=== PATIENT | male | born 1975 | race Hispanic/Latino ===

== ENCOUNTER → 2018-12-15 | Outpatient (CLI) | payer OTHER | END | disposition home or self-care (01) | LOC: RAH 12:52 | PROVIDERS: ATTEND Internal Medicine Cardiovascular Disease | DX: Z13.6 Encounter for screening for cardiovascular disorders (principal) | CPT/HCPCS: 75571 ==

== ENCOUNTER → 2021-03-04 | Outpatient (CLI) | payer BC | END | disposition home or self-care (01) | LOC: DTH 14:27 | PROVIDERS: ATTEND Surgery | DX: G47.33 Obstructive sleep apnea (adult) (pediatric) (principal); E66.01 Morbid (severe) obesity due to excess calories; I10 Essential (primary) hypertension; K21.9 Gastro-esophageal reflux disease without esophagitis | CPT/HCPCS: 97802 ==

== ENCOUNTER 2021-04-09 10:00 | Inpatient (IN) | payer SELFPAY ==
[~2021-04-09] VITALS: Ht 172.7 cm; Wt 148.3 kg
[2021-04-09 09:02] LABS: BASOPHILS % (AUTO) 0.6 % (0.0-5.0); EOSINOPHILS % (AUTO) 1.6 % (0.0-8.0); HEMATOCRIT 51.2 % (42-54); LYMPHOCYTES % (AUTO) 19.3 % (21.0-51.0); MEAN CORPUSCULAR HEMOGLOBIN 30.2 pg (27.0-33.0); MEAN CORPUSCULAR HGB CONC 33.8 g/dL (32.0-36.0); MEAN CORPUSCULAR VOLUME 89.4 fL (79-99); MONOCYTES % (AUTO) 7.3 % (3.0-13.0); NEUTROPHILS % (AUTO) 70.9 % (40.0-77.0); PLATELET COUNT (AUTO) 247 K/uL (130-400); RED BLOOD CELL COUNT(AUTO) 5.73 MIL/uL (4.50-6.20); RED CELL DISTRIBUTION WIDTH 13.2 % (11.0-15.5); WHITE BLOOD COUNT (AUTO) 10.2 K/uL (4.8-10.8)
[2021-04-09 09:11] LABS: INR 1.03 (0.85-1.15); PROTHROMBIN TIME 11.2 SEC (9.6-11.6)
[2021-04-09 09:12] LABS: CREATININE 1.1 mg/dL (0.5-1.5); PARTIAL THROMBOPLASTIN TIME 27.7 SEC (26.3-35.5); POTASSIUM 3.7 mmol/L (3.5-5.1)
[2021-04-11] MEDS: CEFAZOLIN SODIUM 1 GM VIAL IVP SCH (12:30)
[2021-04-12] MEDS ORDERED: ALBU8.5H8 IH (09:44)
[2021-04-12] MEDS ORDERED: ZOLP10TA2 PO (09:44)
[2021-04-12] MEDS ORDERED: OLME-11 PO (09:44)
[2021-04-15] VITALS (19 sets, daily range): BP systolic 97–140; BP diastolic 48–81
[2021-04-15] MEDS: CEFAZOLIN SODIUM 1 GM VIAL IVP SCH ×3 (08:19→13:31)
[2021-04-15] MEDS ORDERED: ALBUTEROL INHALER 90MCG/INH IH ONE ×2 (08:52→08:53)
[2021-04-15] MEDS ORDERED: PROPOFOL 10 MG/ML 20ML VIAL IV ONE ×2 (09:20→11:17)
[2021-04-15] MEDS ORDERED: SUCCINYLCHOLINE CHLORIDE 20 MG/ML 10 ML VIAL ONE (09:20)
[2021-04-15] MEDS ORDERED: LIDOCAINE PF 100MG/5ML (2%) SYRINGE 5ML ONE (09:20)
[2021-04-15] MEDS ORDERED: MIDAZOLAM HCL 1 MG/ML 2ML VIAL ONE (09:21)
[2021-04-15] MEDS ORDERED: ROCURONIUM 10MG/1ML SYR 10 MG/ML ML ONE ×2 (09:21→10:08)
[2021-04-15] MEDS ORDERED: BUPIVACAINE/PF 0.5% 10ML VIAL ONE (09:36)
[2021-04-15] MEDS ORDERED: PHENYLEPHRINE HCL 10 MG/ML 1ML VIAL IV ONE (09:37)
[2021-04-15] MEDS ORDERED: EPHEDRINE SULFATE 50 MG/ML AMPULE ONE (10:10)
[2021-04-15] MEDS ORDERED: LACTATED RINGERS 1000ML 1,000 ML IV ONE (10:36)
[2021-04-15] MEDS ORDERED: DEXAMETHASONE SOD PHOSPHATE 10MG/ML 1ML VIAL ONE (10:43)
[2021-04-15] MEDS ORDERED: FENTANYL CITRATE PF 50 MCG/1 ML 2ML VIAL ONE ×2 (10:54→11:51)
[2021-04-15] MEDS ORDERED: MEPERIDINE-PF 25 MG/ML SYG ONE ×4 (10:54→12:27)
[2021-04-15] MEDS ORDERED: NEOSTIGMINE 5MG/5ML SYR IV ONE (10:56)
[2021-04-15] MEDS ORDERED: GLYCOPYRROLATE 1 MG/5 ML SYRINGE ONE (10:56)
[2021-04-15] MEDS ORDERED: ONDANSETRON HCL 4 MG/2 ML VIAL IVP PRN (11:45)
[2021-04-15] MEDS ORDERED: MORPHINE 5 MG/ML VIAL (5MG OR GREATER DOSE) IVP PRN (11:45)
[2021-04-15] MEDS ORDERED: CEFAZOLIN 3GM /D5W 100ML 100 ML IV SCH (11:45)
[2021-04-15] MEDS ORDERED: SCOPOLAMINE HYDROBROMIDE 1 EACH ADH..PATCH TD ONE (12:26)
[2021-04-15] MEDS: LACTATED RINGERS 1000ML 1,000 ML IV SCH (13:31)
[2021-04-15] MEDS: KETOROLAC 30MG VIAL (30MG/ML) IM PRN (14:12)
[2021-04-15] MEDS ORDERED: ALBUTEROL INHALER 90MCG/INH IH PRN (14:15)
[2021-04-15] MEDS ORDERED: ENOXAPARIN SODIUM 30 MG/0.3 ML SQ ONE (19:19)
[2021-04-15] MEDS ORDERED: FAMOTIDINE/PF 20 MG/2 ML VIAL IV ONE (19:20)
[2021-04-15] MEDS: FAMOTIDINE/PF 20 MG/2 ML VIAL IV SCH (19:23)
[2021-04-15] MEDS: ENOXAPARIN SODIUM 30 MG/0.3 ML SQ SCH (19:23)
[2021-04-15] MEDS: CEFAZOLIN 3GM /D5W 100ML 100 ML IV SCH (19:23)
[2021-04-15] MEDS: MORPHINE 4 MG SYG (4MG/1ML) IV PRN (19:42)
[2021-04-15] MEDS ORDERED: NON-FORMULARY MEDICATION 1 EACH (Zolpidem Tartrate (Ambien) 10 MG) PO SCH (21:00)
[2021-04-15] MEDS: ZOLPIDEM TARTRATE 5 MG TAB PO SCH (21:00)
[2021-04-15] MEDS: OLMESARTAN HCTZ PO SCH (21:00)
[2021-04-16] VITALS (7 sets, daily range): BP systolic 104–142; BP diastolic 54–94
[2021-04-16] MEDS: MORPHINE 4 MG SYG (4MG/1ML) IV PRN ×3 (02:16→13:33)
[2021-04-16] MEDS: CEFAZOLIN 3GM /D5W 100ML 100 ML IV SCH (03:10)
[2021-04-16 04:44] LABS: BASOPHILS % (AUTO) 0.1 % (0.0-5.0); EOSINOPHILS % (AUTO) 0.1 % (0.0-8.0); MEAN CORPUSCULAR HEMOGLOBIN 30.2 pg (27.0-33.0); MEAN CORPUSCULAR HGB CONC 33.9 g/dL (32.0-36.0); MEAN CORPUSCULAR VOLUME 89.2 fL (79-99); MONOCYTES % (AUTO) 8.1 % (3.0-13.0); NEUTROPHILS % (AUTO) 84.2 % (40.0-77.0); PLATELET COUNT (AUTO) 208 K/uL (130-400); RED BLOOD CELL COUNT(AUTO) 4.93 MIL/uL (4.50-6.20); RED CELL DISTRIBUTION WIDTH 13.2 % (11.0-15.5); WHITE BLOOD COUNT (AUTO) 13.9 K/uL (4.8-10.8)
[2021-04-16 04:51] LABS: CREATININE 1.2 mg/dL (0.5-1.5); POTASSIUM 4.6 mmol/L (3.5-5.1)
[2021-04-16] MEDS: LACTATED RINGERS 1000ML 1,000 ML IV SCH ×3 (06:28→19:45)
[2021-04-16] MEDS: KETOROLAC 30MG VIAL (30MG/ML) IM PRN ×2 (07:47→16:01)
[2021-04-16] MEDS: FAMOTIDINE/PF 20 MG/2 ML VIAL IV SCH ×2 (09:04→21:04)
[2021-04-16] MEDS: ENOXAPARIN SODIUM 30 MG/0.3 ML SQ SCH ×2 (09:04→21:04)
[2021-04-16] MEDS ORDERED: APAP/CODEINE 120/12MG 5ML PO PRN (17:45)
[2021-04-16] MEDS: OLMESARTAN HCTZ PO SCH (21:00)
[2021-04-16] MEDS: ZOLPIDEM TARTRATE 5 MG TAB PO SCH (21:00)
[2021-04-16] MEDS: KETOROLAC 30MG VIAL (30MG/ML) IV SCH (21:12)
[2021-04-17] MEDS: KETOROLAC 30MG VIAL (30MG/ML) IV SCH ×2 (03:21→08:16)
[2021-04-17] MEDS: LACTATED RINGERS 1000ML 1,000 ML IV SCH (03:45)
[2021-04-17 03:53] VITALS: BP 106/66
[2021-04-17 08:13] VITALS: BP 110/68
[2021-04-17] MEDS: FAMOTIDINE/PF 20 MG/2 ML VIAL IV SCH (08:16)
[2021-04-17] MEDS: ENOXAPARIN SODIUM 30 MG/0.3 ML SQ SCH (08:17)
== END 2021-04-17 12:00 | disposition home or self-care (01) | DRG 621 ==
LOC: EDSTATUS 10:00 → DAHIP 04-15 07:28 → 4BH 04-15 12:42
PROVIDERS: ADMIT Surgery; ATTEND Surgery
PROC: 0D164ZA Bypass Stomach to Jejunum, Percutaneous Endoscopic Approach (ICD-10-PCS; principal; 2021-04-15 09:18)
DX: E66.01 Morbid (severe) obesity due to excess calories (principal); Z96.652 Presence of left artificial knee joint; I10 Essential (primary) hypertension; Z83.3 Family history of diabetes mellitus; Z82.49 Family history of ischemic heart disease and other diseases of the circulatory system; K21.9 Gastro-esophageal reflux disease without esophagitis; Z68.42 Body mass index [BMI] 45.0-49.9, adult; Z20.822 Contact with and (suspected) exposure to COVID-19
CPT/HCPCS: 36415; 43235; 80048; 85025; 85610; 85730; 86850; 86900; 86901; 87635; G0378; J0330; J0690; J1100; J1650; J1885; J2001; J2175; J2250; J2270; J2370; J2704; J2710; J3010; J3490; J7030; J7120

== ENCOUNTER 2021-06-21 09:56 | Emergency (ER) | payer OTHER, SELFPAY ==
[~2021-06-21] VITALS: Ht 172.7 cm; Wt 122.5 kg
[~2021-06-21 09:56] MED LIST: ALBU8.5H8 IH; OLME-11 PO; ZOLP10TA2 PO
[2021-06-21 09:58] VITALS: BP 137/89
[2021-06-21 10:47] LABS: BASOPHILS % (AUTO) 0.7 % (0.0-5.0); EOSINOPHILS % (AUTO) 1.8 % (0.0-8.0); HEMATOCRIT 38.9 % (42-54); LYMPHOCYTES % (AUTO) 33.8 % (21.0-51.0); MEAN CORPUSCULAR HGB CONC 33.9 g/dL (32.0-36.0); MEAN CORPUSCULAR VOLUME 88.4 fL (79-99); NEUTROPHILS % (AUTO) 53.3 % (40.0-77.0); PLATELET COUNT (AUTO) 176 K/uL (130-400); RED CELL DISTRIBUTION WIDTH 14.4 % (11.0-15.5); WHITE BLOOD COUNT (AUTO) 5.7 K/uL (4.8-10.8)
[2021-06-21 11:02] LABS: ALBUMIN 3.4 g/dL (3.5-5.0); BILIRUBIN,TOTAL 0.7 mg/dL (0.2-1.0); CREATININE 0.9 mg/dL (0.5-1.5); TOTAL PROTEIN, SERUM 6.7 g/dL (6.0-8.3)
[2021-06-21 11:05] LABS: POTASSIUM 2.9 mmol/L (3.5-5.1)
[2021-06-21] MEDS ORDERED: MORPHINE 4 MG SYG IV ONE (11:30)
[2021-06-21] MEDS ORDERED: ONDANSETRON 4MG INJ IVP ONE (11:30)
[2021-06-21] MEDS ORDERED: IOHEXOL-350 75 ML VIAL IV ONE (12:17)
[2021-06-21] MEDS ORDERED: ACET1TAB25 PO (14:59)
== END 2021-06-21 15:59 | disposition home or self-care (01) ==
LOC: EDH 09:56
DX: S39.011A Strain of muscle, fascia and tendon of abdomen, initial encounter (principal); I10 Essential (primary) hypertension; Z96.652 Presence of left artificial knee joint; Z98.52 Vasectomy status; Z79.899 Other long term (current) drug therapy; X50.9XXA Other and unspecified overexertion or strenuous movements or postures, initial encounter; Y93.89 Activity, other specified; Y92.89 Other specified places as the place of occurrence of the external cause; Y99.8 Other external cause status
CPT/HCPCS: 36415; 74177; 80053; 83690; 85025; 99285; Q9967; J2270; J2405